=== PATIENT | male | born 2000 ===

== ENCOUNTER 2020-08-29 08:53 | Outpatient (CLI) | payer BC | END 2020-08-29 08:54 | disposition home or self-care (01) | LOC: TBSIIMAG 08:53 | PROVIDERS: ATTEND Orthopaedic Surgery | DX: M47.26 Other spondylosis with radiculopathy, lumbar region (principal); M54.5 Low back pain; M51.16 Intervertebral disc disorders with radiculopathy, lumbar region; M47.817 Spondylosis without myelopathy or radiculopathy, lumbosacral region | CPT/HCPCS: 72148 ==